=== PATIENT | female | born 1975 | race Caucasian/White ===

== ENCOUNTER 2024-05-18 07:16 | Outpatient (CLI) | payer OTHER, SELFPAY ==
--- NOTE | 2024-05-18 07:30 | NM_ITS ---
WS: [id number] NUCLEAR MEDICINE 24 HOUR I-123 THYROID UPTAKE INDICATION: RIGHT thyroid nodule TECHNIQUE: I-123 24 HOUR THYROID UPTAKE WITH PLANAR IMAGING. 160 [facility] KAREN 123 COMPARISON: Ultrasound 02/29/2024 FINDINGS: 24-hour thyroid uptake 33.69% at the upper end of the range. Relatively symmetric homogeneous thyroid uptake. No cold nodules. (NORMAL 24H THRYOID UPTAKE 8-35%) NM/NM thyroid uptake multi [id number] IMPRESSION: 24-hour thyroid uptake 33.69% within normal limits but at the upper end of the range
== END 2024-05-18 07:17 | disposition home or self-care (01) ==
PROVIDERS: Family Provider Family Medicine; PCP Electrodiagnostic Medicine; Visit Provider Specialist
DX: E07.9 Disorder of thyroid, unspecified (principal)
CPT/HCPCS: 78014; A9516

== ENCOUNTER 2024-10-14 09:43 | Outpatient (CLI) | payer OTHER, SELFPAY | END 2024-10-14 09:44 | disposition home or self-care (01) | LOC: LAB 09:46 | PROVIDERS: Internal Medicine; Family Provider Family Medicine; PCP Electrodiagnostic Medicine; Visit Provider Electrodiagnostic Medicine | DX: E05.00 Thyrotoxicosis with diffuse goiter without thyrotoxic crisis or storm (principal) | CPT/HCPCS: 36415; 84443 ==

== ENCOUNTER 2025-05-26 12:45 | Outpatient (CLI) | payer OTHER, SELFPAY ==
--- NOTE | 2025-05-26 12:51 | MM_ITS ---
WS: [id number] BILATERAL 3D TOMOSYNTHESIS DIGITAL SCREENING MAMMOGRAPHY WITH CAD CLINICAL INFORMATION: SCREENING HISTORY: Screening mammogram. No current complaints. COMPARISON: Baseline TECHNIQUE: Bilateral CC and MLO views. FINDINGS: Scattered fibroglandular densities bilaterally. No suspicious focal mass, asymmetry, calcifications, or architectural distortion. No evidence of malignancy. MM/MM scr BI tomosynthesis [id number] IMPRESSION: DENSITY: There are scattered areas of fibroglandular density. BI-RADS: 1 - Negative. FOLLOW UP: 1 Year Follow-up Recommend return to annual screening mammography.
== END 2025-05-26 12:46 | disposition home or self-care (01) ==
LOC: RAD 12:45
PROVIDERS: PCP Electrodiagnostic Medicine; Visit Provider Electrodiagnostic Medicine
DX: Z12.31 Encounter for screening mammogram for malignant neoplasm of breast (principal); R92.323 Mammographic fibroglandular density, bilateral breasts
CPT/HCPCS: 77063; 77067